=== PATIENT | female | born 1970 | race Caucasian/White ===

== ENCOUNTER 2017-07-19 14:30 | Outpatient (RCR) | payer OTHER, SELFPAY | END 2017-07-19 16:00 | disposition home or self-care (01) | LOC: PT 14:30 | PROVIDERS: Family Provider Nurse Practitioner Family; Visit Provider Orthopaedic Surgery Adult Reconstructive Orthopaedic Surgery | DX: M25.561 Pain in right knee (principal) | CPT/HCPCS: 97033; 97035; 97110; 97140; 97164 ==

== ENCOUNTER → 2018-05-09 12:48 | Outpatient (CLI) | payer OTHER, SELFPAY ==
--- NOTE | 2018-05-09 | US_ITS ---
US Arterial Ankle Brachial Ind History: Claudication, rest pain, smoker ORDERING PHYSICIAN: Pauline Rojas PATIENT AGE: 47 years TECHNIQUE: Segmental pressures obtained of both right and left leg. These are compared to brachial blood pressure to yield index at each level sampled including summary TIM. The data sheets from the procedure are available in PACS FINDINGS Rest study only performed today No prior studies available for comparison. Blood pressures reported are in millimeters mercury. RIGHT LEG TIM = 1.1. RIGHT LEG TBI=.8 Brachial BP: 132 Thigh BP: 142 Calf BP: 161 Ankle PT: 142 Ankle DP : 138 Digit =106 LEFT LEG TIM = 1.1 LEFT LEG TBI= .9 Brachial BPD: 126 Thigh BP: 150 Calf BP: 153 Ankle PT:146 Ankle DP: 145 Digit = 117 Pulses and waveforms: Normal IMPRESSION: The ABIs as reported above are within normal limits. Waveforms and pulses are also unremarkable.
--- NOTE | 2018-05-09 12:58 | CA_ITS ---
PROCEDURE: 2-D M-mode and color Doppler study INDICATIONS FOR THE TEST: Chest pain COPD Heart Murmur Tobacco Smoking + Palpitations Fatigue Syncope Edema Hypertension Diabetes Mellitus Rheumatic Fever SOB CHILDERS Obesity Hyperlipidemia Family History HD Additional History L LUMPECTOMY PATIENT INFORMATION HEIGHT: 65 WEIGHT:240 GENDER: Female B/P:118/89 2-D/M-MODE INTERPRETATION: 2-D MEASUREMENTS OBSERVED VALUES IN CMS Right Ventricular Dimension (RVDd) 2.9 Interventricular Septum (Thickness)(IVsd) 1.0 Left Ventricular Internal Dimensions(LVIDd) 4.3 Left Ventricular Posterior Wall (Thickness)(LVPWd) 1.0 Aortic Root 3.6 Aortic Cusp Separation 2.2 Left Atrial Dimensions (LAD) 3.5 2D 1. Left atrium is mildly enlarged, left ventricle is normal size, left ventricle wall thickness is upper limit of normal, there is preserved left ventricular systolic function, visually estimated ejection fraction 55% with no regional wall motion abnormality. 2. The right atrium is normal size, right ventricle is mildly enlarged with normal contractility. 3. The aortic valve is minimally thickened and fibrosed. 4. The mitral and tricuspid valvular grossly normal. 5. The pulmonic valve is poorly visualized. 6. No significant pericardial effusion noted. DOPPLER INTERROGATION: Doppler interrogation of the aortic, mitral and tricuspid valvular presence of mild mitral and tricuspid regurgitation, tricuspid regurgitation jet velocity is inadequate for calculation of the right ventricular systolic pressure, diastolic parameters are inconclusive. CONCLUSION: 1. Normal left ventricular size, preserved ventricular systolic function, visually estimated ejection fraction 55% with no regional wall motion abnormality, diastolic parameters are inconclusive. 2. Mildly enlarged ventricle with normal contractility. 3. Mild mitral and tricuspid regurgitation 4. No significant pericardial effusion noted.
== END ==
PROVIDERS: PCP Nurse Practitioner Family; Visit Provider Nurse Practitioner Family
DX: R60.1 Generalized edema (principal)
CPT/HCPCS: 93306; 93922

== ENCOUNTER → 2018-06-02 07:57 | Outpatient (POV) | payer OTHER, SELFPAY | PROVIDERS: Visit Provider Dentist | DX: Z00.00 Encounter for general adult medical examination without abnormal findings (principal) ==

== ENCOUNTER → 2018-06-16 09:04 | Outpatient (POV) | payer OTHER, SELFPAY | PROVIDERS: Visit Provider Dentist | DX: Z00.00 Encounter for general adult medical examination without abnormal findings (principal) ==

== ENCOUNTER 2019-11-22 10:03 | Emergency (ER) | payer MEDICAID, SELFPAY ==
[2019-11-22 10:14] VITALS: BP 148/106; PULSE 94; RESP 18; TEMP 36.8; O2SAT 95; BMI 39.6
[2019-11-22 10:22] VITALS: BP 149/106; PULSE 95; O2SAT 98
[2019-11-22 10:38] VITALS: BP 127/80; PULSE 93; RESP 18; O2SAT 96
--- NOTE | 2019-11-22 10:54 | HMH.EDEYEP ---
ED Disposition Clinical Impression: Corneal abrasion Qualifiers: Encounter type: initial encounter Laterality: left Qualified Code(s): S05.02XA - Injury of conjunctiva and corneal abrasion without foreign body, left eye, initial encounter Disposition: Home, Self-Care Condition on Discharge: Fair Instructions: DI for Eye Pain Additional Instructions: Eyes were examined after instilling tetracaine Wood's light was used. Examination revealed rolled skin in the left eye.An attempt was made to remove this with a blunt pickup however it appeared that it will not come off I then spoke to Dr. Darby oil distributor tender and he has agreed to see you. Since you were not up-to-date on tetanus, we have given you a shot of tetanus. Referrals: Kimberly Andres APRN [Primary Care Provider] - - Critical Care Critical Care Time: No Attestation: On 11/22/19, the high probability of a clinically significant, sudden or life threatening deterioration of the following system(s) required my full and direct attention, intervention and personal management. The time I documented below is in addition to time spent performing reported procedures but includes the following listed in this critical care notation. Medical Decision Making - Medical Records Medical records reviewed: Yes: I reviewed the patient's medical records. MR Comment: Redness and pain noted to L eye x2 days. Pt reports 2 days ago she was using concrete screws and possibly got something in her eye. Pt denies vision changes. Was examined after instilling tetracaine in her eye Wood's light was used. Examination revealed rolled skin in the left eye.An attempt was made to remove this with a blunt pickup however it appeared that it will not come off I then spoke to Dr. Darby oil distributor tender and he has agreed to see patient. She is not up-to-date on her tetanus and hence we have given her a shot of tetanus otherwise she is quite stable - Juice Inquiry Pt receiving controlled substance: No Vital Signs: 11/22/19 10:14 11/22/19 10:22 11/22/19 10:38 Temperature 98.3 F Temperature Source Oral Pulse Rate [Right Radial] 16 L 95 H 93 H Respiratory Rate 18 18 Blood Pressure [Right Arm] 148/106 H 149/106 H 127/80 Blood Pressure Mean [Right Arm] 120 120 95 Blood Pressure Source [Right Arm] Automatic Cuff Automatic Cuff Blood Pressure Position [Right Arm] Sitting Supine Sitting 02 Sat by Pulse Oximetry 95 98 96 Oxygen Delivery Method Room Air Room Air Room Air Eye Problem HPI - General Chief complaint: Eye Problems Stated complaint: left eye swollen and red Time Seen by Provider: 11/22/19 10:30 Mode of Arrival: Ambulatory Source of Information: Patient Limitations: No Limitations Description of Symptoms (Recalled from ER Triage Doc. by RN): Redness and pain noted to L eye x2 days. Pt reports 2 days ago she was using concrete screws and possibly got something in her eye. Pt denies vision changes. - History of Present Illness HPI Narrative: Redness and pain noted to L eye x2 days. Pt reports 2 days ago she was using concrete screws and possibly got something in her eye. Pt denies vision changes. MD chief complaint: eye pain, eye redness, eye injury Onset (ago): day(s) Onset description: sudden Duration: intermittent Location: left eye Eye Symptoms: burning, redness, pain, foreign body sensation Place: home Mechanism: occurred while hammering/grinding Severity: moderate Severity scale (1-10): 4 If Pain, Quality: burning Treatments Prior to Arrival: irrigated eye - Related Data Patient tetanus UTD: No Home Medications Medication Instructions Recorded Confirmed lisinopriL [Lisinopril 10mg Tab] 10 mg PO DAILY 02/09/18 11/22/19 Buspirone HCl [Buspar 10mg 10 mg PO BID 11/22/19 11/22/19 tablet] Cetirizine HCl 10 mg PO DAILY 11/22/19 11/22/19 Citalopram Hydrobromide 10 mg PO DAILY 11/22/19 11/22/19 [Citalopram 10mg Tablet] hydrOXYzine HCL [Hydroxyzine HCl] 25 m
--- NOTE | 2019-11-22 10:55 | PC.NURSE ---
contacting Dr. Darby for consult per ER MD request
--- NOTE | 2019-11-22 10:57 | PC.NURSE ---
DAWSON MOBLEY speaking with Dr. Mehnaz Darby states to send pt to his office after d/c from ER
[2019-11-22 11:16] VITALS: BP 127/80; PULSE 93; RESP 18; TEMP 36.8; O2SAT 96
== END 2019-11-22 11:16 | disposition home or self-care (01) ==
PROVIDERS: Emergency Provider Emergency Medicine; PCP Nurse Practitioner
DX: S05.02XA Injury of conjunctiva and corneal abrasion without foreign body, left eye, initial encounter (principal); W45.8XXA Other foreign body or object entering through skin, initial encounter; Y92.019 Unspecified place in single-family (private) house as the place of occurrence of the external cause; Z23 Encounter for immunization; I10 Essential (primary) hypertension; F17.210 Nicotine dependence, cigarettes, uncomplicated
CPT/HCPCS: 90715; 99282

== ENCOUNTER 2020-07-01 12:51 | Emergency (ER) | payer MEDICAID, SELFPAY ==
[2020-07-01 13:04] VITALS: BP 170/101; PULSE 101; RESP 14; TEMP 36.6; O2SAT 99; BMI 40.3
--- NOTE | 2020-07-01 13:07 | XR_ITS ---
PROCEDURE: XR ANKLE LT MIN 3V CLINICAL INDICATION: twisted it yesterday COMPARISON: No exams were available for comparison FINDINGS: No fracture or dislocation. No lytic or blastic change. There is normal mineralization. The ankle mortise is congruent and the lateral clear space is preserved. Calcaneal spur and Achilles tendon enthesopathy. Degenerative changes of the tarsal bones are partially visualized. Other findings:No significant soft tissue abnormality is noted. IMPRESSION: No acute fractures or dislocations. Dictated by: Kristen Viramontes 07/01/2020 14:35 Kristen Viramontes in OV 07/01/2020 14:35
--- NOTE | 2020-07-01 13:12 | HMH.EDUTC ---
[facility] [place] Clinical Impression: Ankle sprain Qualifiers: Encounter type: initial encounter Involved ligament of ankle: other ligament Laterality: left Qualified Code(s): S93.492A - Sprain of other ligament of left ankle, initial encounter Disposition: Home, Self-Care Condition on Discharge: Good Instructions: How to Use Crutches, How To Perform RICE (Rest, Ice, Compress, Elevate), How to Use a Walking Boot Additional Instructions: *weight bearing as tolerated *RICE, Rest the extremity, Ice 15-20 minutes 3-4 times daily, Compress- wear the juan antonio wrap as discussed as much as possible to help reduce swelling and pain, Elevate the extremity when at rest *Juan Antonio wrap/ Walking boot is for support and help control swelling, use it except in the shower. Be sure that is not to tight but not to loose either and use crutches to get around *Elevate when resting *Ibuprofen every 6-8 hours as needed for pain an inflammation. If need something more can take Tylenol in between doses of Ibuprofen to help Immediately follow up with your family doctor for new or worsening of symptoms, or no noticeable improvement over the next 3-5 days Call back to the [facility] later this evening for the official reading of your xray Follow up with your Family Doctor if needed Follow up with Podiatry if no improvement or any worsening of symptoms Referrals: Kimberly Andres APRN [Primary Care Provider] - As needed mEily Ashraf DPM [Staff Physician] - Forms: Work/School Release Time of Disposition: 13:44 Medical Decision Making - Juice Inquiry Pt receiving controlled substance: No Juice was queried for this patient: No Vital Signs: 07/01/20 13:04 07/01/20 13:42 Temperature 97.9 F 98 F Temperature Source Tympanic Pulse Rate 92 H Pulse Rate [Right] 101 H Respiratory Rate 14 14 Blood Pressure 155/95 H Blood Pressure [Right Arm] 170/101 H Blood Pressure Mean [Right Arm] 124 Blood Pressure Source [Right Arm] Automatic Cuff Blood Pressure Position [Right Arm] Sitting 02 Sat by Pulse Oximetry 99 Oxygen Delivery Method Room Air - Radiology Data #1 Image(s): Ankle Image Reviewed: Yes I reviewed the patient's radiology image No acute fracture will place in walking boot and have patient follow up with Dr Ashraf [facility] [place]PI - General Stated complaint: [id number] Left ankle pain,home fall Time Seen by Provider: 07/01/20 13:12 Mode of Arrival: Ambulatory Source of Information: Patient Limitations: No Limitations Description of Symptoms (Recalled from Triage Doc. by RN): pt fell yesterday. she rolled her L ankle. pt states it feels like its on fire. HEENT Symptoms (Recalled from RN notes): No Resp Symptoms (Recalled from RN notes): No Skin Symptoms (Recalled from RN notes): No MS Symptoms (Recalled from RN notes): Yes (L ankle pain and swelling) Functional Status (Recalled from RN notes): na - History of Present Illness Provider Complaint: Patient states that she was caring for her grandson yesterday in the bath that has special needs when he accidently pushed into her and she fell into the bathroom door and rolled her left ankle States that she applied ice to all last night and when she woke up today it was swollen and hurt when she would walk on it - Related Data Home Medications Medication Instructions Recorded Confirmed lisinopriL [Lisinopril 10mg Tab] 10 mg PO DAILY 02/09/18 11/22/19 Buspirone HCl [Buspar 10mg 10 mg PO BID 11/22/19 11/22/19 tablet] Cetirizine HCl 10 mg PO DAILY 11/22/19 11/22/19 Citalopram Hydrobromide 10 mg PO DAILY 11/22/19 11/22/19 [Citalopram 10mg Tablet] hydrOXYzine HCL [Hydroxyzine HCl] 25 mg PO NEEDED PRN 11/22/19 11/22/19 Allergies Allergy/AdvReac Type Severity Reaction Status Date / Time No Known Allergies Allergy Verified 07/01/20 13:07 - Worker's Comp Is this a Worker's Comp case?: No H History - Hepatitis A Screen Drug use history?: No High risk sexual behav
[2020-07-01 13:42] VITALS: BP 155/95; PULSE 92; RESP 14; TEMP 36.6
== END 2020-07-01 13:55 | disposition home or self-care (01) ==
PROVIDERS: Emergency Provider Nurse Practitioner; PCP Nurse Practitioner
DX: S93.409A Sprain of unspecified ligament of unspecified ankle, initial encounter (principal); W01.0XXA Fall on same level from slipping, tripping and stumbling without subsequent striking against object, initial encounter; Y92.019 Unspecified place in single-family (private) house as the place of occurrence of the external cause; I10 Essential (primary) hypertension; F17.210 Nicotine dependence, cigarettes, uncomplicated
CPT/HCPCS: 29515; 73610; 99202; G0463

== ENCOUNTER 2020-12-07 20:18 | Emergency (ER) | payer MEDICAID, SELFPAY ==
[2020-12-07 20:20] VITALS: BP 196/102; PULSE 120; RESP 20; TEMP 37.1; O2SAT 97; BMI 39.9
[2020-12-07 20:59] LABS: Apearance,Urine Clear (Clear); Color,Urine Yellow (Yellow)
[2020-12-07 21:00] LABS: Bilirubin,Urine Negative (Negative); Blood, Urine Trace (Negative); Glucose,Urine (UA) Negative (Negative); Ketones,Urine Negative (Negative); PH,Urine 6.5 (5.0-8.5); Protein,Urine Negative (Negative); Specific Gravity, Urine 1.025 (1.005-1.030)
[2020-12-07 21:01] LABS: UTC Leukocyte Esterase,Urine Negative (Negative); UTC Nitrate,Urine Negative (Negative); Urobilinogen,Urine 0.2 EU/dl (0.2)
--- NOTE | 2020-12-07 21:04 | HMH.EDUTC ---
[facility] [place] Clinical Impression: Low back pain Qualifiers: Chronicity: unspecified Back pain laterality: right Sciatica presence: without sciatica Qualified Code(s): M54.5 - Low back pain Disposition: Home, Self-Care Condition on Discharge: Good Instructions: Muscle Strain, DI for Low Back Pain Additional Instructions: *Ibuprofen trupti 6 hours with meal as needed for pain/inflammation if you can take it *Not additional anti-inflammatory like motrin, aleve, advil with the above amount of ibuprofen. You can still take Tylenol every 4 hours as needed if you need something else for pain *Ice 20 minutes every 2 hours for the first 48 hours after the initial injury followed by moist heat every 20 minutes 3-4 times a day to affected area *Keep this area active, no movement leads to more stiffness, However take it easy and avoid heavy lifting pushing or pulling *Follow up with you family doctor if no improvement for further treatment Return if needed Straight to ER if any life threatening symptoms Referrals: Kimberly Andres APRN [Primary Care Provider] - As needed Time of Disposition: 21:10 Medical Decision Making - Juice Inquiry Pt receiving controlled substance: No Juice was queried for this patient: No Vital Signs: 12/07/20 20:20 Temperature 98.8 F Temperature Source Oral Pulse Rate [Right Brachial] 120 H Respiratory Rate 20 Blood Pressure [Right Arm] 196/102 H Blood Pressure Mean [Right Arm] 133 Blood Pressure Source [Right Arm] Automatic Cuff Blood Pressure Position [Right Arm] Sitting 02 Sat by Pulse Oximetry 97 Oxygen Delivery Method Room Air - Lab Data Lab results reviewed: Yes: I reviewed the patient's lab results. Lab Results 12/07/20 20:42: Urine Color Yellow, Urine Appearance Clear, Urine pH 6.5, Ur Specific [place] 1.025, Urine Protein Negative, Urine Glucose (UA) Negative, Urine Ketones Negative, Urine Blood Trace, Urine Nitrate Negative, Urine Bilirubin Negative, Urine Urobilinogen 0.2, Ur Leukocyte Esterase Negative Orders (Tests/Meds): ORDERS Category Date Time Status Urine Culture Stat Micro 12/07/20 20:30 Received Medical Decision Narrative: Discussed xray and patient declined states that she would try warm compresses and OTC medications and call PCP if needed if no improvement [facility] [place]PI - General Stated complaint: Covid +. Kidney pain Time Seen by Provider: 12/07/20 21:04 Mode of Arrival: Ambulatory Source of Information: Patient Limitations: No Limitations Description of Symptoms (Recalled from Triage Doc. by RN): PATIENT C/O RIGHT FLANK PAIN AND PELVIC PAIN WITH URINATION THAT STARTED YESTERDAY. SHE RECENTLY TESTED POSITIVE FOR COVID AND WAS HAVING BODY ACHES, BUT STATES THE FLANK PAIN IS DIFFERENT THAN WHAT SHES BEEN HAVING HEENT Symptoms (Recalled from RN notes): No Resp Symptoms (Recalled from RN notes): No Skin Symptoms (Recalled from RN notes): No MS Symptoms (Recalled from RN notes): No Functional Status (Recalled from RN notes): WNL - History of Present Illness Provider Complaint: Patient states that she is COVID + states that she has been having body aches but noticed yesterday she was having achy like pain in her right side of lower back area State that she felt like she was urinating more than usual but unsure if she may have pulled something, has a UTI or just achying from COVID but she wanted to get her urine checked - Related Data Home Medications Medication Instructions Recorded Confirmed lisinopriL [Lisinopril 10mg Tab] 10 mg PO DAILY 02/09/18 10/01/20 Buspirone HCl [Buspar 10mg 10 mg PO BID 11/22/19 10/01/20 tablet] Cetirizine HCl 10 mg PO DAILY 11/22/19 10/01/20 Citalopram Hydrobromide 10 mg PO DAILY 11/22/19 10/01/20 [Citalopram 10mg Tablet] hydrOXYzine HCL [Hydroxyzine HCl] 25 mg PO NEEDED PRN 11/22/19 10/01/20 Previous Rx's Medication Instructions Recorded diclofenac sodium 1 % topical gel 4 g TOPICAL QID PRN 30 Days #1
[2020-12-07 21:16] VITALS: BP 146/97; PULSE 110; RESP 20; TEMP 37.1; O2SAT 97
== END 2020-12-07 21:18 | disposition home or self-care (01) ==
PROVIDERS: Emergency Provider Nurse Practitioner; PCP Nurse Practitioner
DX: M54.5 Low back pain (principal); U07.1 COVID-19; F41.8 Other specified anxiety disorders; F17.210 Nicotine dependence, cigarettes, uncomplicated
CPT/HCPCS: 81003; 87086; 99202; G0463

== ENCOUNTER 2021-08-17 10:49 | Emergency (ER) | payer MEDICAID, SELFPAY ==
[2021-08-17 11:05] VITALS: BP 141/92; PULSE 90; RESP 19; TEMP 36.7; O2SAT 97; BMI 36.6
--- NOTE | 2021-08-17 11:17 | HMH.EDUTC ---
[facility] [place] Clinical Impression: Viral upper respiratory illness Disposition: Home, Self-Care Condition on Discharge: Good Instructions: DI for Viral Upper Respiratory Infection -- Adult Additional Instructions: No sign of a bacterial infection. Likely viral. Viruses can take 7-14 days to run their course. Nasal saline and bulb syringe or nose Nina to remove nasal drainage to help with nasal congestion. Hard to eat, drink, sleep with nasal congestion so important to keep this cleaned out. Monitor temp. Tylenol or Motrin as needed for pain or fever Encourage fluids, water, Gatorade, Powerade, Pedialyte if infant/toddler/child Warm salt water gargles Warm fluids Sore throat lozenges Sleep elevated Humidifier/vaporizer Follow-up immediately for new or worsening symptoms or no noticeable improvement over the next 48-72 hours. Prescriptions: predniSONE [Prednisone 20mg Tab] 20 mg PO BID #10 tab Transmission Status: Pending to [id number] Referrals: Kimberly Andres APRN [Primary Care Provider] - Time of Disposition: 12:05 Medical Decision Making - Juice Inquiry Pt receiving controlled substance: No Vital Signs: 08/17/21 11:05 Temperature 98.1 F Temperature Source Oral Pulse Rate [Right Brachial] 90 Respiratory Rate 19 Blood Pressure [Right Arm] 141/92 H Blood Pressure Mean [Right Arm] 108 Blood Pressure Source [Right Arm] Automatic Cuff Blood Pressure Position [Right Arm] Sitting 02 Sat by Pulse Oximetry 97 Oxygen Delivery Method Room Air Orders (Tests/Meds): ORDERS Category Date Time Status Strep Scrn Group A (Rapid) Stat Lab 08/17/21 12:03 Ordered [facility] [place] HPI - General Chief complaint: [facility] Stated complaint: throat irritation,cough Time Seen by Provider: 08/17/21 11:17 Mode of Arrival: Ambulatory Source of Information: Patient Limitations: No Limitations Description of Symptoms (Recalled from Triage Doc. by RN): PATIENT C/O COUGH, SORE THROAT AND CONGESTION X 1 WEEK HEENT Symptoms (Recalled from RN notes): Yes Resp Symptoms (Recalled from RN notes): Yes Skin Symptoms (Recalled from RN notes): No MS Symptoms (Recalled from RN notes): No Functional Status (Recalled from RN notes): WNL - History of Present Illness Provider Complaint: 50 yr old fmeale presnets for sore throat and congestion for 1 week. pt states she sprayed some chemical last week and since then has been coughing. - Related Data Home Medications Medication Instructions Recorded Confirmed lisinopriL [Lisinopril 10mg Tab] 10 mg PO DAILY 02/09/18 10/01/20 Buspirone HCl [Buspar 10mg 10 mg PO BID 11/22/19 10/01/20 tablet] Cetirizine HCl 10 mg PO DAILY 11/22/19 10/01/20 Citalopram Hydrobromide 10 mg PO DAILY 11/22/19 10/01/20 [Citalopram 10mg Tablet] hydrOXYzine HCL [Hydroxyzine HCl] 25 mg PO NEEDED PRN 11/22/19 10/01/20 Previous Rx's Medication Instructions Recorded diclofenac sodium 1 % topical gel 4 g TOPICAL QID PRN 30 Days #100 g 10/01/20 ibuprofen 800 mg-famotidine 26.6 1 tab PO TID PRN 30 Days #90 tab 10/01/20 mg tablet predniSONE [Prednisone 20mg 20 mg PO BID #10 tab 08/17/21 Tab] Allergies Allergy/AdvReac Type Severity Reaction Status Date / Time No Known Allergies Allergy Verified 10/01/20 10:07 - Worker's Comp Is this a Worker's Comp case?: No [facility] History - Hepatitis A Screen Attestation statement:: This patient has been screened for Hepatitis A risk factors. I have reviewed the patient's past medical history: Yes Medical History: Reports:: Anxiety, Depression Denies:: Chronic Obstructive Pulmonary Disease (COPD), Diabetes Mellitus Type 1, Diabetes Mellitus Type 2 Laterality Cases: Left: Lumpectomy Other Surgeries: Yes: Cholecystectomy, , Hysterectomy-Partial, Other (Carpal Tunnel-RT hand, RT knee surgery) - Social History Smoking Status: Current every day smoker Tobacco Type: cigarettes # Packs/Day (cigar
[2021-08-17 12:08] VITALS: BP 141/92; PULSE 90; RESP 19; TEMP 36.7; O2SAT 97
[2021-08-17 12:09] LABS: Strep Scrn Group A (Rapid) Negative (Negative)
== END 2021-08-17 12:09 | disposition home or self-care (01) ==
PROVIDERS: Emergency Provider Nurse Practitioner Family; PCP Nurse Practitioner
DX: J06.9 Acute upper respiratory infection, unspecified (principal); B34.9 Viral infection, unspecified
CPT/HCPCS: 87430; 99212; G0463

== ENCOUNTER 2022-01-20 15:55 | Emergency (ER) | payer MEDICAID, SELFPAY ==
[2022-01-20 16:21] VITALS: BP 153/94; PULSE 111; RESP 18; TEMP 37; O2SAT 95; BMI 37.9
--- NOTE | 2022-01-20 16:28 | EXP.UTC ---
Discharge Plan Disposition Patient Disposition: Home, Self-Care Condition: Good Prescriptions Prescriptions: New benzonatate [benzonatate] 100 mg capsule 100 mg PO TIDP PRN (Reason: Cough) Qty: 30 0RF methylprednisolone 4 mg Tablets,Dose Pack 4 mg PO DIRECTED Qty: 21 0RF amoxicillin-pot clavulanate 875-125 mg Tablet 1 tab PO Q12H Qty: 20 0RF No Action Duexis 800-26.6 mg tablet 1 tab PO TID PRN (Reason: pain) 30 Days Qty: 90 2RF diclofenac sodium [Voltaren Arthritis Pain] 1 % gel 4 g TOPICAL QID PRN (Reason: pain) 30 Days Qty: 100 2RF Rx Instructions: apply to single knee, ankle, foot; for foot includes sole/toes/top of foot lisinopril 10 MG tablet 10 mg PO DAILY citalopram 10 MG tablet 10 mg PO DAILY buspirone 10 MG tablet 10 mg PO BID hydroxyzine HCl 25 MG tablet 25 mg PO NEEDED PRN (Reason: Anxiety) cetirizine 10 MG tablet,chewable 10 mg PO DAILY prednisone 20 MG tablet 20 mg PO BID Qty: 10 0RF Referrals Follow up/Referrals: Kimberly Andres APRN [Primary Care Provider] - See instructions Activity Restrictions/Add. Instructions Additional Instructions/Restrictions: Drink plenty of fluids. Take tylenol or ibuprofen for pain or fever. Take the medications as directed. Follow up with your regular doctor. GO TO THE ER FOR ANY WORSENING SYMPTOMS Throw your tooth brush away and get a new one. Clinical Impressions Clinical Impression: Pharyngitis Instructions Patient Instructions: Strep Throat, DI for Strep Throat Discharge ED Provider: Amador Sanchez [facility] General Stated complaint: sore throat and ear ache Mode of Arrival: Ambulatory Source of Information: Patient Limitations: No Limitations Time Seen by Provider: 01/20/22 16:28 Description of Symptoms (Recalled from Triage Doc. by RN): pt comes in with c/o sore throat that began wednesday HEENT Symptoms (Recalled from RN notes): Yes Resp Symptoms (Recalled from RN notes): No Skin Symptoms (Recalled from RN notes): No MS Symptoms (Recalled from RN notes): No Functional Status (Recalled from RN notes): n/a History of Present Illness Provider Complaint: She c/o sore throat, bilateral ear pain, and a dry cough for the past 3 days. She has been exposed to strep throat. Related Data Home Medications Medication Instructions Recorded Confirmed lisinopril 10 mg tablet 10 mg PO DAILY HTN 02/09/18 10/01/20 buspirone 10 mg tablet 10 mg PO BID Anxiety 11/22/19 10/01/20 cetirizine 10 mg chewable tablet 10 mg PO DAILY allergies 11/22/19 10/01/20 citalopram 10 mg tablet 10 mg PO DAILY mood 11/22/19 10/01/20 hydroxyzine HCl 25 mg tablet 25 mg PO NEEDED PRN Anxiety 11/22/19 10/01/20 Previous Rx's Medication Instructions Recorded diclofenac sodium 1 % topical gel 4 g topical QID PRN pain 30 days 10/01/20 (Voltaren Arthritis Pain) #100 grams ibuprofen 800 mg-famotidine 26.6 1 tab PO TID PRN pain 30 days #90 10/01/20 mg tablet (Duexis) tabs prednisone 20 mg tablet 20 mg PO BID #10 tabs 08/17/21 amoxicillin 875 mg-potassium 1 tab PO Q12H #20 tabs 01/20/22 clavulanate 125 mg tablet benzonatate 100 mg capsule 100 mg PO TIDP PRN Cough #30 caps 01/20/22 methylprednisolone 4 mg tablets in 4 mg PO DIRECTED #21 tabs 01/20/22 a dose pack Allergies Allergy/AdvReac Type Severity Reaction Status Date / Time No Known Allergies Allergy Verified 01/20/22 16:24 Worker's Comp Is this a Worker's Comp case?: No PFSH PFSH Social History Smoking Status: Current every day smoker tobacco type: cigarettes packs per day: 1 alcohol intake: never current occupational status: employed Travel in the last 8 weeks: None ROS Obtained: Yes All systems reviewed & no additional complaints except as documented Constitutional Constitutional: Reports chills and Reports fever(s) Eyes Eyes: Denies eye discharge ENT
[2022-01-20 16:31] LABS: UTC Strep Screen (Rapid) Negative (Negative)
[2022-01-20 17:00] VITALS: BP 153/94; PULSE 111; RESP 18; TEMP 37
== END 2022-01-20 17:01 | disposition home or self-care (01) ==
PROVIDERS: Emergency Provider Nurse Practitioner Family; PCP Nurse Practitioner
DX: J02.9 Acute pharyngitis, unspecified (principal); H92.03 Otalgia, bilateral; R05.9 Cough, unspecified; F41.9 Anxiety disorder, unspecified; F17.210 Nicotine dependence, cigarettes, uncomplicated; Z79.1 Long term (current) use of non-steroidal anti-inflammatories (NSAID); Z79.51 Long term (current) use of inhaled steroids; Z79.52 Long term (current) use of systemic steroids; Z79.899 Other long term (current) drug therapy
CPT/HCPCS: 87880; 99213; G0463

== ENCOUNTER 2022-09-04 19:53 | Emergency (ER) | payer MEDICAID, SELFPAY ==
[2022-09-04 19:55] VITALS: BP 137/86; PULSE 116; RESP 20; TEMP 37.2; O2SAT 98; BMI 40.9
--- NOTE | 2022-09-04 20:15 | EXP.UTC ---
Discharge Plan Disposition Patient Disposition: Home, Self-Care Condition: Good Prescriptions Prescriptions: New pssjrppdwlcrxyu-[id number]-VR [Bromfed DM] 2-30-10 mg/5 mL syrup 10 ml PO Q6H PRN (Reason: cold symptoms) Qty: 200 0RF No Action Duexis 800-26.6 mg tablet 1 tab PO TID PRN (Reason: pain) 30 Days Qty: 90 2RF diclofenac sodium [Voltaren Arthritis Pain] 1 % gel 4 g TOPICAL QID PRN (Reason: pain) 30 Days Qty: 100 2RF Rx Instructions: apply to single knee, ankle, foot; for foot includes sole/toes/top of foot lisinopril 10 MG tablet 10 mg PO DAILY citalopram 10 MG tablet 10 mg PO DAILY buspirone 10 MG tablet 10 mg PO BID hydroxyzine HCl 25 MG tablet 25 mg PO NEEDED PRN (Reason: Anxiety) cetirizine 10 MG tablet,chewable 10 mg PO DAILY prednisone 20 MG tablet 20 mg PO BID Qty: 10 0RF benzonatate [benzonatate] 100 mg capsule 100 mg PO TIDP PRN (Reason: Cough) Qty: 30 0RF methylprednisolone 4 mg Tablets,Dose Pack 4 mg PO DIRECTED Qty: 21 0RF amoxicillin-pot clavulanate 875-125 mg Tablet 1 tab PO Q12H Qty: 20 0RF Referrals Follow up/Referrals: Kimberly Andres APRN [Primary Care Provider] - See instructions Clinical Impressions Clinical Impression: Viral upper respiratory illness Instructions Patient Instructions: DI for Viral Upper Respiratory Infection -- Adult Discharge ED Provider: Larisa Rodriguez [facility] [place] HPI General Stated complaint: Fever,Earache both, Tom when urine Mode of Arrival: Ambulatory Source of Information: Patient Limitations: No Limitations Time Seen by Provider: 09/04/22 20:14 Description of Symptoms (Recalled from Triage Doc. by RN): PATIENT C/O FEVER, CHILLS, COUGH, AND HEAD PRESSURE SINCE LAST NIGHT HEENT Symptoms (Recalled from RN notes): Yes Resp Symptoms (Recalled from RN notes): Yes Skin Symptoms (Recalled from RN notes): No MS Symptoms (Recalled from RN notes): No Functional Status (Recalled from RN notes): WNL History of Present Illness Provider Complaint: Pt states that she had a (subjective) fever last night. She states that she has coughed and had head pressure since yesterday as well. Related Data Home Medications Medication Instructions Recorded Confirmed lisinopril 10 mg tablet 10 mg PO DAILY HTN 02/09/18 10/01/20 buspirone 10 mg tablet 10 mg PO BID Anxiety 11/22/19 10/01/20 cetirizine 10 mg chewable tablet 10 mg PO DAILY allergies 11/22/19 10/01/20 citalopram 10 mg tablet 10 mg PO DAILY mood 11/22/19 10/01/20 hydroxyzine HCl 25 mg tablet 25 mg PO NEEDED PRN Anxiety 11/22/19 10/01/20 Previous Rx's Medication Instructions Recorded diclofenac sodium 1 % topical gel 4 g topical QID PRN pain 30 days 10/01/20 (Voltaren Arthritis Pain) #100 grams ibuprofen 800 mg-famotidine 26.6 1 tab PO TID PRN pain 30 days #90 10/01/20 mg tablet (Duexis) tabs prednisone 20 mg tablet 20 mg PO BID #10 tabs 08/17/21 amoxicillin 875 mg-potassium 1 tab PO Q12H #20 tabs 01/20/22 clavulanate 125 mg tablet benzonatate 100 mg capsule 100 mg PO TIDP PRN Cough #30 caps 01/20/22 methylprednisolone 4 mg tablets in 4 mg PO DIRECTED #21 tabs 01/20/22 a dose pack [id number]-MW 10 ml PO Q6H PRN cold symptoms 09/04/22 2 mg-30 mg-10 mg/5 mL oral syrup #200 mL (Bromfed DM) Allergies Allergy/AdvReac Type Severity Reaction Status Date / Time No Known Allergies Allergy Verified 01/20/22 16:24 Worker's Comp Is this a Worker's Comp case?: No [facility] Disclaimer: The information contained in this section may have been updated after the patient was seen, as this information can be updated by other users. Social History Smoking Status: Current every day smoker tobacco type: cigarettes packs per day: 1 alcohol intake: never current occupational status: employed Travel in the last 8 weeks: None ROS Obtained:
[2022-09-04 20:23] VITALS: BP 137/86; PULSE 116; RESP 20; TEMP 37.2; O2SAT 98
== END 2022-09-04 20:32 | disposition home or self-care (01) ==
PROVIDERS: Emergency Provider Nurse Practitioner Family; PCP Nurse Practitioner
DX: J06.9 Acute upper respiratory infection, unspecified (principal); B34.9 Viral infection, unspecified; R50.9 Fever, unspecified; F17.210 Nicotine dependence, cigarettes, uncomplicated
CPT/HCPCS: 99212; 99214; G0463

== ENCOUNTER 2024-01-25 09:44 | Emergency (ER) | payer MEDICAID, SELFPAY ==
[2024-01-25 10:40] VITALS: BP 130/84; PULSE 114; RESP 20; TEMP 36.7; O2SAT 98; BMI 39.3
--- NOTE | 2024-01-25 11:08 | EXP.UTC ---
Discharge Plan Disposition Patient Disposition: Home, Self-Care Condition: Good Prescriptions Prescriptions: New miconazole nitrate [Monistat 3] 4 % (200 mg)- 2 % (9 gram) comb pack,prefill appl, cream 1 appful vaginal HS 3 Days Qty: 24 0RF Rx Instructions: use as directed No Action Duexis 800-26.6 mg tablet 1 tab PO TID PRN (Reason: pain) 30 Days Qty: 90 2RF diclofenac sodium [Voltaren Arthritis Pain] 1 % gel 4 g TOPICAL QID PRN (Reason: pain) 30 Days Qty: 100 2RF Rx Instructions: apply to single knee, ankle, foot; for foot includes sole/toes/top of foot lisinopril 10 MG tablet 10 mg PO DAILY citalopram 10 MG tablet 10 mg PO DAILY buspirone 10 MG tablet 10 mg PO BID hydroxyzine HCl 25 MG tablet 25 mg PO NEEDED PRN (Reason: Anxiety) cetirizine 10 MG tablet,chewable 10 mg PO DAILY prednisone 20 MG tablet 20 mg PO BID Qty: 10 0RF benzonatate [benzonatate] 100 mg capsule 100 mg PO TIDP PRN (Reason: Cough) Qty: 30 0RF methylprednisolone 4 mg Tablets,Dose Pack 4 mg PO DIRECTED Qty: 21 0RF amoxicillin-pot clavulanate 875-125 mg Tablet 1 tab PO Q12H Qty: 20 0RF [id number]-njencwwql-IX [Bromfed DM] 2-30-10 mg/5 mL syrup 10 ml PO Q6H PRN (Reason: cold symptoms) Qty: 200 0RF Referrals Follow up/Referrals: Kimberly Andres APRN [Primary Care Provider] - See instructions Activity Restrictions/Add. Instructions Additional Instructions/Restrictions: Use Monistat as directed Follow up with your Family Doctor if no improvement Return if needed Clinical Impressions Clinical Impression: Vaginal yeast infection Instructions Patient Instructions: DI for Vaginal Yeast Infection, Miconazole Vaginal Print Language Print Language: Setswana Discharge ED Provider[place] Amelie Laguer[place] [facility] [place] General Stated complaint: uti Mode of Arrival: Ambulatory Source of Information: Patient Limitations: No Limitations Time Seen by Provider: 01/25/24 11:08 Description of Symptoms (Recalled from Triage Doc. by RN): PATIENT C/O LOWER BACK PAIN, HEADACHE, AND PAIN WITH URINATION THAT STARTED A FEW DAYS AGO HEENT Symptoms (Recalled from RN notes): Yes Resp Symptoms (Recalled from RN notes): No Skin Symptoms (Recalled from RN notes): No MS Symptoms (Recalled from RN notes): No Functional Status (Recalled from RN notes): WNL History of Present Illness Provider Complaint: Patient states that she is not sure if she may have a yeast infection or UTI States that she has been having burning with urination and feeling of urgency and frequency states that she also has an achy like feeling in her lower back but she has that sometimes so she came in wanting to get her urine checked Related Data Home Medications ?Medication ?Instructions ?Recorded ?Confirmed lisinopril 10 mg tablet 10 mg PO DAILY HTN 02/09/18 10/01/20 buspirone 10 mg tablet 10 mg PO BID Anxiety 11/22/19 10/01/20 cetirizine 10 mg chewable tablet 10 mg PO DAILY allergies 11/22/19 10/01/20 citalopram 10 mg tablet 10 mg PO DAILY mood 11/22/19 10/01/20 hydroxyzine HCl 25 mg tablet 25 mg PO NEEDED PRN Anxiety 11/22/19 10/01/20 Previous Rx's ?Medication ?Instructions ?Recorded diclofenac sodium 1 % topical gel 4 g topical QID PRN pain 30 days 10/01/20 (Voltaren Arthritis Pain) #100 grams ibuprofen 800 mg-famotidine 26.6 1 tab PO TID PRN pain 30 days #90 10/01/20 mg tablet (Duexis) tabs prednisone 20 mg tablet 20 mg PO BID #10 tabs 08/17/21 amoxicillin 875 mg-potassium 1 tab PO Q12H #20 tabs 01/20/22 clavulanate 125 mg tablet benzonatate 100 mg capsule 100 mg PO TIDP PRN Cough #30 caps 01/20/22 methylprednisolone 4 mg tablets in 4 mg PO DIRECTED #21 tabs 01/20/22 a dose pack [id number]-whtiqtuxxffapof-LQ 10 ml PO Q6H PRN cold symptoms 09/04/22 2 mg-30 mg-10 mg/5 mL oral syrup #200 mL (Bromfed DM) miconazole nitrate 4 % (200 mg)-2 1 appful vaginal HS 3 days #24 01/25/24 % (9 gram)vaginal,prefill grams appl,cream (Monistat 3) Allergies Allergy/AdvReac Type Severity Reaction Status Date / Time No Known Allergies Allergy Verified 01/20/22 16:24 Worker's Comp Is this a Worker's Comp case?: [facility] Disclaimer: The information contained in this section may have been updated after the patient was seen, as this information can be updated by other users. Social History Smoking Status: Current every day smoker tobacco type: cigarettes packs per day: 1 alcohol intake: never current occupational status: employed Travel in the last 8 weeks: None ROS Obtained: Yes All systems reviewed & no additional complaints except as documented and Yes Systems reviewed as appropriate & no additional complaints except as documented Constitutional Constitutional: Reports system reviewed and no additional complaints, except as documented, Reports as per HPI, Denies body ache, Denies chills, Denies fever(s) and Denies headache(s) ENT Ears, Nose, Mouth, and Throat: Reports system reviewed and no additional complaints, except as documented, Reports as per HPI and Denies headache(s) Cardiovascular Cardiovascular: Reports system reviewed and no additional complaints, except as documented and Reports as per HPI Respiratory Respiratory: Reports system reviewed and no additional complaints, except as documented and Reports as per HPI Gastrointestinal Gastrointestingal: Reports system reviewed and no additional complaints, except as documented and as per HPI; Denies abdominal pain Genitourinary Female Genitourinary: Reports system reviewed and no additional complaints, except as documented, Reports as per HPI, Reports dysuria, Reports urinary frequency, Reports urinary urgency and Reports vaginal discharge Musculoskeletal Musculoskeletal: Reports system reviewed and no additional complaints, except as documented, Reports as per HPI and Reports back pain (on and off) Neurologic Neurologic: Denies headache(s) Physical Exam General General appearance: alert and in no apparent distress ENT ENT exam: Present mucous membranes moist Respiratory Respiratory exam: Present normal lung sounds bilaterally; Absent respiratory distress or wheezes Cardiovascular Cardiovascular exam: Present regular rate, normal rhythm and normal heart sounds Abdominal Exam Abdominal exam: Present soft and normal bowel sounds; Absent distention, tenderness, guarding or rebound Back Exam Back 1 view image: 1. achy like feeling on and off, denies loss of control of bowel or bladder, denies injury Neurological Exam Neurological exam: Present alert, oriented X3 and normal gait Medical Decision Making Medical Records Screening: Per USPSTF and CDC recommendations, given the prevalence of disease in our region, it is our hospital?s policy to screen for HIV and viral Hepatitis for all patients aged 18 and over and those with ongoing risk factors. Juice Inquiry Pt receiving controlled substance: No Juice was queried for this patient: No Vital Signs: 01/25/24 10:40 Temperature 98.0 F Temperature Source Oral Pulse Rate [Left Brachial] 114 H Respiratory Rate 20 Blood Pressure [Left Arm] 130/84 Blood Pressure Mean [Left Arm] 99 Blood Pressure Source [Left Arm] Automatic Cuff Blood Pressure Position [Left Arm] Sitting 02 Sat by Pulse Oximetry 98 Oxygen Delivery Method Room Air Lab Data Lab results reviewed: Yes I reviewed the patient's lab results. Orders (Tests/Meds): ORDERS Category Date Time Status Urinalysis and Microscopic Stat Lab 01/25/24 10:59 Ordered
[2024-01-25 11:20] LABS: Microscopic, Urine URINE MICROSCOPIC (MICROSCOPIC)
[2024-01-25 11:23] LABS: Appearance,Urine CLEAR (Clear); Bilirubin,Urine Negative (Negative); Blood, Urine Negative (Negative); Color,Urine YELLOW (Yellow); Glucose,Urine (UA) 3+ (Negative); Ketones,Urine Negative (Negative); Leukocyte Esterase,Urine Negative (Negative); Nitrate,Urine Negative (Negative); Protein,Urine Negative (Negative); Urobilinogen,Urine 0.2 EU/dl (0.2)
[2024-01-25 11:40] LABS: Bacteria,Urine Trace /lpf
[2024-01-25 12:00] VITALS: BP 130/84; PULSE 114; RESP 20; TEMP 36.7; O2SAT 98
== END 2024-01-25 12:04 | disposition home or self-care (01) ==
PROVIDERS: Emergency Provider Nurse Practitioner; PCP Nurse Practitioner
DX: B37.31 Acute candidiasis of vulva and vagina (principal)
CPT/HCPCS: 81001; 99213; G0381